=== PATIENT | male | born 1980 | race Caucasian/White ===

== ENCOUNTER 2025-03-18 03:58 | Emergency (ER) | payer OTHER ==
[~2025-03-18] VITALS: Ht 182.9 cm; Wt 90.9 kg
[2025-03-18 04:09] VITALS: BP 153/112; PULSE 111; TEMP 98.2; O2SAT 99
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
[2025-03-18] MEDS: LIDOcaine 1% W/epiNEPHrine 1:100,000 20ml vial SQ ONE (05:24)
[2025-03-18] MEDS: TETanus/Pertussis (Acell)/Diphther VAC/PF (Tdap-Adult) 0.5ml syringe IMVAC ONE (05:26)
[2025-03-18] MEDS: DOXYCYCLINE 100MG CAPSULE PO STA (05:26)
[2025-03-18 05:27] LABS: MEAN PLATELET VOLUME 7.7 FL (7.4-10.4); RED CELL DISTRIBUTION WIDTH 14.8 % (11.5-14.5)
[2025-03-18 05:30] VITALS: RESP 16
[2025-03-18 05:41] LABS: APTT 29 SECONDS (22-32); INR 1.0 INR
[2025-03-18 05:58] LABS: CREATININE 0.85 MG/DL (0.60-1.10); ETHANOL 199 MG/DL (<10); TOTAL CARBON DIOXIDE 19.3 MMOL/L (24-32); eCRCL 123 ML/MIN; eGFR > 90 ML/MIN
[2025-03-18] MEDS ORDERED: DOXY-224 PO (05:58)
[2025-03-18 06:38] LABS: MYOGLOBIN 208.0 ng/ml (16-96)
== END 2025-03-18 06:57 | disposition left against medical advice (07) ==
LOC: ER 03:59
DX: S01.81XA Laceration without foreign body of other part of head, initial encounter (principal); S06.0X1A Concussion with loss of consciousness of 30 minutes or less, initial encounter; F10.129 Alcohol abuse with intoxication, unspecified; F12.90 Cannabis use, unspecified, uncomplicated; F17.200 Nicotine dependence, unspecified, uncomplicated; Z72.89 Other problems related to lifestyle; Z79.899 Other long term (current) drug therapy; Y90.9 Presence of alcohol in blood, level not specified; W18.30XA Fall on same level, unspecified, initial encounter; Y93.89 Activity, other specified; Y92.89 Other specified places as the place of occurrence of the external cause; Y99.8 Other external cause status
CPT/HCPCS: 12013; 36415; 80048; 80320; 82550; 83874; 85025; 85610; 85730; 90471; 90715; 99284; A6449